=== PATIENT | male | born 1965 | race Caucasian/White ===

== ENCOUNTER 2018-01-21 20:22 | Observation (INO) ==
[2018-01-21] MEDS ORDERED: 0.9 % Sodium Chloride 1,000 ML ONE (22:30)
[2018-01-21] MEDS ORDERED: 0.9 % Sodium Chloride 1,000 ML IVC ONE (23:26)
[2018-01-22] MEDS ORDERED: 0.9 % Sodium Chloride 1,000 ML IVC ONE ×2 (00:07→02:27)
[2018-01-22] MEDS ORDERED: Naloxone 0.4 MG/ML INJ IVP PRN (00:14)
[2018-01-22 01:39] LABS: Calcium 8.7 mg/dL (8.6-10.3); Potassium 3.7 mEq/L (3.5-5.1)
[2018-01-22] MEDS: 0.9 % Sodium Chloride 1,000 ML IVC SCH ×5 (04:48→22:43)
[2018-01-22 05:16] LABS: Hematocrit 37.3 % (37.5-50.1); Hemoglobin 12.4 g/dL (12.9-16.9); Mean Corpuscular HGB Conc 33.2 g/dL (31.6-35.5); Mean Corpuscular Hemoglobin 33.5 pg (28.0-33.3); Mean Corpuscular Volume 100.8 fL (83.0-100.0); Mean Platelet Volume 9.5 fL (9.4-12.4); Platelet Count 248 K/mcL (140-400); Red Cell Distribution Width 14.5 % (11.5-14.5)
[2018-01-22 05:31] LABS: Calcium 8.7 mg/dL (8.6-10.3); Potassium 3.9 mEq/L (3.5-5.1)
--- NOTE | 2018-01-22 06:20 | Internal Med History&Physical ---
Date of Encounter: 01/21/18 Time of Encounter: 23:00 Internal Medicine - H&P: HPI Chief complaint: Acute kidney injury Admitted From: Home Plans for Post Hospital Care: Home History of present illness: Mr. Laird is a 52 year old male Patient states that he over did it yesterday mowing really tall grass in the heat. He says he had been out working all day and not keeping up with fluids and got dehydrated. During his work he reports feeling leg cramps and seeing flashes in his eyes. The only thing he had to drink was sweet tea. He was dripping with sweat by the time he was finished working and took a shower, after which he says he began to feel really cold and started to have worsened muscle aches and cramps as well as abdominal pain. He also had decreased urination at home which concerned him enough to go to a urgent care for evaluation. There they sent him to the [facility], and later was transferred here for further management after noting acute kidney injury. At the [place] ER his creatinine was 4.00 with a BUN of 41. His UA showed 30 of protein, moderate blood, many bacteria, many hyaline and granular casts and few wbc casts. On-call nephrology was called in the ER, and will see the patient at [place]. Currently the patient feels much better, denies abdominal pain, and muscle aches have resolved. Past Med Surg Social Fam HX - Past Medical History Medical history: arthritis, hypertension Psychiatric history: no psych history - Past Surgical History Surgical History: no surgical history - Social History Smoking Status: Former smoker Smokeless Tobacco Status: No Alcohol use: occasionally Drug use: none Internal Medicine - H&P: Meds Aspirin [Lo-Dose Aspirin EC] 81 mg PO DAILY 04/04/16 [History] amLODIPine [Norvasc] 5 mg PO DAILY 04/04/16 [History] Cayenne 450 mg PO DAILY 01/21/18 [History] Cholecalciferol (Vitamin D3) [Vitamin D] 1,000 unit PO DAILY 01/21/18 [History] Lisinopril [Zestril] 20 mg PO DAILY 01/21/18 [History] 3 Allergy/AdvReac Type Severity Reaction Status Date / Time No Known Allergies Allergy Verified 01/21/18 17:37 All Systems PM: A 10-system review of systems was performed and is negative for pertinent findings except as documented above in the HPI. - Constitutional Vitals: Temp Pulse Resp BP Pulse Ox 98.5 F 89 17 124/74 96 01/22/18 05:10 01/22/18 05:10 01/22/18 05:10 01/22/18 05:10 01/22/18 05:10 General appearance: Present: cooperative, A&O X 3, pleasant, no acute distress, answers questions appropriately - Head Head exam: Present: normal inspection - Eye Eye exam: Present: EOMI, normal appearance - Neck Neck exam general surgery: Present: full ROM - Respiratory Respiratory exam: Present: CTAB. Absent: chest wall tenderness, respiratory distress, wheezes - Cardiovascular Cardiovascular exam: Present: RRR. Absent: diastolic murmur, systolic murmur - GI/Abdominal GI/Abdominal exam: Present: normal bowel sounds. Absent: guarding, tenderness - Extremities Exam Extremities exam: Present: full ROM, warm, radial pulses palpable and symmetrical. Absent: calf tenderness, pedal edema, tenderness - Neurological Exam Neurological exam: Present: no focal deficits, strengths equal and symetr throughout. Absent: motor sensory deficit, facial droop, speech deficit - Skin Skin exam: Present: dry, normal color, warm Internal Med - H&P Results - Labs CBC & Chem 7: 01/22/18 04:08 01/22/18 04:08 Labs: Short CBC 01/22/18 Range/Units 04:08 WBC 10.2 (4.3-11.1) K/mcL Hgb 12.4 L D (12.9-16.9) g/dL Hct 37.3 L (37.5-50.1) % Plt Count 248 (140-400) K/mcL [facility] 01/22/18 01/22/18 00:44 04:08 Sodium 137 139 Potassium 3.7 3.9 Chloride 105 108 H Carbon Dioxide 26 26 BUN 35 H 30 H Creatinine 2.72 H 2.26 H Glucose 149 H 103 Calcium 8.7 8.7 - Assessment and plan (1) Acute renal failure (ARF) Current Visit: No Status: Acute Assessment and plan: Patient has no history of renal disease. His symptoms likely related to dehydration, prerenal picture. His BUN/creatinine have improved with IV fluids. Patient has Echevarria catheter in place, for collection of 24-hour urine sodium and creatinine. Patient does have hyaline casts as well as granular casts. These could indicate either prerenal or intrinsic ideologies. Nephrology consultation in the morning. Obtain urine sodium and creatinine Obtain urine osmolality Calculate fractional excretion of sodium to determine prerenal versus intrinsic etiology of SOBEIDA. Continue IV fluids Continue to monitor kidney function and urine output. Qualifiers: Acute renal failure type: unspecified Qualified Code(s): N17.9 - Acute kidney failure, unspecified (2) Anuria and oliguria Current Visit: No Status: Acute Assessment and plan: Improved with IV hydration. Continue to monitor Treatment as above. (3) Dehydration Current Visit: Yes Status: Acute Assessment and plan: Likely cause of SOBEIDA. Patient was out in the heat mowing the lawn not drinking sufficient fluids. Treatment as above. (4) Urinary tract infection Current Visit: No Status: Acute Assessment and plan: Patient had bacteria on his urinalysis, but negative nitrite and leukocyte esterase. Urine culture was not indicated. Likely patient's symptoms related to dehydration and not due to infection. Patient given Cipro at [facility], will discontinue for now. Continue to monitor. Qualifiers: Qualified Code(s): N39.0 - Urinary tract infection, site not specified; R31.9 - Hematuria, unspecified - Time Spent With Patient Total time spent is greater than 50% in coordination of care (as documented) at patient's floor/unit and/or counseling patient: Greater than 35 minutes
[2018-01-22] MEDS: *HR* Heparin 5,000 UNIT/ML VIAL SQ SCH ×2 (06:21→16:33)
--- NOTE | 2018-01-22 10:12 | Nephrology Consult Note ---
<SalsunnyBhavna lirianoKhadra B - Last Filed: 01/22/18 10:53> Date of Encounter: 01/22/18 Time of Encounter: 10:09 Assessment and Plan (1) SOBEIDA (acute kidney injury) Status: Acute No kidney disease at baseline. Initial serum creatinine was 4, SCR is 2.26 today GFR is 31. He does have a Echevarria in place, with a 24-hour urine in progress noted to have clear yellow urine. Initial UA showed 30 protein, moderate blood, and a few WBC. I would like to repeat the UA after the 24-hour urine with a clean catch to compare with the initial. UA ordered for tomorrow at 0800, after the 24-hour urine is complete. Continue IV fluid. Avoid nephrotoxins at renal dose all medications. Strict I&O. Retroperitoneal ultrasound ordered for today. CPK and Uric acid ordered for tomorrow. (2) Dehydration Status: Acute Continue IV fluid. Per primary. History of Present Illness - Reason for Consult Consult date: 01/22/18 Acute Kidney Injury - Chief Complaint renal failure - History of Present Illness Mr. Laird is a 52-year-old male with no notable past medical history. He went to [facility] urgent care after being outside doing yard work. The urgent care was not able to collect a urine specimen, so he was sent to his primary care provider which is where the initial labs were collected. The primary care provider then sent him to the ER where he was finally transferred to our ED. Upon arrival he stated that he had been outside working "very hard" for nearly a day and a half, and he does feel that he overdid it. He did try to rehydrate with sweet tea but by the evening time yesterday he was seeing flashing lights and having muscle aches. That is when he went to urgent care. He admits to only voiding small amounts at a time and dysuria over the last day and a half as well. Denies fever and chills nausea or vomiting. Has never seen a marble setter in the past and has never been told he has had a prostate issue. He states he only sees his PCP when he absolutely needs to. No family history of kidney disease that he is aware of and no recent medication changes. Denies chronic use of nonsteroidal anti-inflammatories. Does not smoke cigarettes or use illegal drugs. Admits to drinking at least 2 beers every day and as much as 6 a day. He states he did not have any beer yesterday before his admission. There is a 24 hour urine and progress. I will also order a retroperitoneal ultrasound. Most likely this AK I is secondary to dehydration but will rule out other causes. Past Med Surg Social Fam HX - Past Medical History Medical history: arthritis, hypertension Psychiatric history: no psych history - Past Surgical History Surgical History: no surgical history - Social History Smoking Status: Former smoker Smokeless Tobacco Status: No Alcohol use: occasionally Drug use: none Medications and Allergies amLODIPine [Norvasc] 5 mg PO DAILY 04/04/16 [History] Cayenne 450 mg PO DAILY 01/21/18 [History] Cholecalciferol (Vitamin D3) [Vitamin D3] 1,000 unit PO DAILY 01/21/18 [History] Aspirin Enteric Coated [Aspirin EC] 81 mg PO DAILY 01/22/18 [History] Ergocalciferol (VITAMIN D2) [Drisdol (50,000 Unit)] 50,000 units PO QWEEK [History] Lisinopril/Hydrochlorothiazide [Zestoretic 20-25 mg Tablet] 1 tab PO DAILY 01/22 [History] Melatonin 5 mg PO HS 01/22/18 [History] Omeprazole [PriLOSEC] 40 mg PO DAILY 01/22/18 [History] 3 Allergy/AdvReac Type Severity Reaction Status Date / Time No Known Allergies Allergy Verified 01/21/18 17:37 Review of Systems Constitutional: no chills, no fatigue, no fever(s) Cardiovascular: no chest pain Respiratory: no cough Gastrointestinal: no abdominal pain, no change in bowel habits, no diarrhea Genitourinary Male: dysuria, urinary frequency, urinary hesitancy Exam - Vital Signs Vital signs: Initial Vital Signs Temp Pulse Resp BP Pulse Ox 99.9 F H 83 17 111/73 96 01/21/18 22:19 01/21/18 22:19 01/21/18 22:19 01/21/18 22:19 01/21/18 22:19 Vital Signs - Last 8 Hours Temp Pulse Resp BP Pulse Ox 01/22/18 07:08 98.2 F 81 18 127/78 97 01/22/18 05:10 98.5 F 89 17 124/74 96 Intake and Output 01/21/18 01/22/18 01/22/18 23:59 07:59 15:59 Intake Total 1000 / 1000 1999 / 2000 1000 / 1000 Output Total 1000 / 1000 650 / 650 400 / 400 Balance 0 / 0 1350 / 1350 600 / 600 Intake: IV Fluids 1000 / 1000 1999 / 1999 1000 / 1000 0.9 % Sodium Chloride 1,000 ML 1000 / 1000 1999 / 1999 1000 / 1000 @ 250 mls/hr IVC .Q4H PENDING SALE TO [facility] Rx#: [id number] Output: Urine 650 / 650 Catheter 1000 / 1000 400 / 400 Other: Weight 93.8 kg - General Appearance General appearance: well-developed, well-nourished EENT: ATNC, hearing intact, vision intact Neck: supple Respiratory: clear Cardiology: no edema, normal S1, normal S2 Gastrointestinal: normoactive bowel sounds, no tenderness, no guarding Integumentary: no rash, warm and dry Neurologic: alert and oriented x3 Psychiatric: mood/affect appropriate, cooperative Results - Lab Results 01/22/18 04:08 01/22/18 04:08 Most recent lab results Calcium 8.7 mg/dL (8.6-10.3) 01/22/18 04:08 Consult Discharge Plan - Plan Additional Instructions: Hold Zestoretic for 2 more days Referrals: Chantal Maloney CNP [Primary Care Provider] - (In 1-2 weeks) <Bobby Medel - Last Filed: 01/29/18 11:25> Date of Encounter: 01/22/18 Exam - Vital Signs Vital signs: Initial Vital Signs Temp Pulse Resp BP Pulse Ox 99.9 F H 83 17 111/73 96 01/21/18 22:19 01/21/18 22:19 01/21/18 22:19 01/21/18 22:19 01/21/18 22:19 Results - Lab Results 01/22/18 04:08 01/23/18 05:37 Most recent lab results Calcium 8.9 mg/dL (8.6-10.3) 01/23/18 05:37 Urine Creatinine 40 mg/dL 01/22/18 07:20 Urine Sodium 132.0 mEq/L 01/22/18 07:20 - Attending Attestation I examined this patient and my medical decision-making was reviewed with the Resident Physician/FRUIT DRYER. I agree with the documented findings, disposition and treatment plan as described except to the extent set forth below. Pt seen and examined, in brief 53 y o male with no sig PMH admitted with generalized malaise and althralgias after working all day outside in the heat. SCr noted at 4 with baseline at 1.1 as of 2015. SCr already improved at 2.26 as of this am with IVF, continue aggressive volume repletion. Urine studies pending. CPK and uric acid levels pending. Continue to avoid nephrotoxins if possible. No acute indication for CARPET INSPECTOR FINISHED at this time.
--- NOTE | 2018-01-22 14:14 | Internal Med Progress Note ---
Date of Encounter: 01/22/18 Time of Encounter: 10:40 - Assessment and plan (1) SOBEIDA (acute kidney injury) Current Visit: Yes Status: Acute Assessment and plan: Most likely related to ATN. Checking creatinine kinase. Creatinine BUN, creatinine improving. We will continue IV hydration. Continue to monitor urine output. Avoid any further nephrotoxic agents. (2) Dehydration Current Visit: Yes Status: Acute Assessment and plan: Continue IV hydration. Encouraged oral hydration. Replete electrolytes. (3) Anuria and oliguria Current Visit: No Status: Acute (4) Urinary tract infection Current Visit: Yes Status: Ruled-out Assessment and plan: Initially suspected of having urinary tract infection. However did reveal urinalysis, most likely this is all related to his acute kidney injury. No signs of acute UTI at this time. No indication for antibiotics. Qualifiers: Qualified Code(s): N39.0 - Urinary tract infection, site not specified; R31.9 - Hematuria, unspecified - Time Spent With Patient Total time spent is greater than 50% in coordination of care (as documented) at patient's floor/unit and/or counseling patient: - Subjective Interval history: Patient is feeling much better this morning. He is having good urine output. Denies any muscle cramps or pain. - Constitutional Vitals: Temp Pulse Resp BP Pulse Ox 98.5 F 75 22 133/85 98 01/22/18 10:59 01/22/18 10:59 01/22/18 10:59 01/22/18 10:59 01/22/18 10:59 General appearance: Present: cooperative, A&O X 3, pleasant, no acute distress, answers questions appropriately - Respiratory Respiratory exam: Present: CTAB. Absent: accessory muscle use, rales, rhonchi, wheezes - GI/Abdominal GI/Abdominal exam: Present: normal bowel sounds, soft, no peritoneal signs. Absent: distended, tenderness - Extremities Exam Extremities exam: Present: warm, radial pulses palpable and symmetrical. Absent : calf tenderness, cyanotic, pedal edema - Neurological Exam Neurological exam: Present: CN II-XII intact, oriented X3, no focal deficits. Absent: facial droop, speech deficit Internal Medicine: Result - Labs CBC & Chem 7: 01/22/18 04:08 01/22/18 04:08 Labs: Short CBC 01/22/18 Range/Units 04:08 WBC 10.2 (4.3-11.1) K/mcL Hgb 12.4 L D (12.9-16.9) g/dL Hct 37.3 L (37.5-50.1) % Plt Count 248 (140-400) K/mcL BMP 01/22/18 01/22/18 00:44 04:08 Sodium 137 139 Potassium 3.7 3.9 Chloride 105 108 H Carbon Dioxide 26 26 BUN 35 H 30 H Creatinine 2.72 H 2.26 H Glucose 149 H 103 Calcium 8.7 8.7 Consult Discharge Plan - Plan Referrals: Chantal Maloney, CONCR[employer] BUILDINGS [employer]SEMBLER [Primary Care Provider] -
[2018-01-23] MEDS: 0.9 % Sodium Chloride 1,000 ML IVC SCH ×2 (02:59→06:09)
[2018-01-23 04:29] LABS: Bilirubin,Urine Negative (Negative); Blood,Urine Small (Negative); Clarity,Urine Clear (Clear); Color,Urine Yellow (Yellow); Glucose,Urine (UA) 250 mg/dL (Normal); Ketones,Urine Negative (Negative); Leukocyte Esterase,Urine Negative (Negative); Nitrite,Urine Negative (Negative); PH,Urine 6.5 pH Units (5.0-8.0); Protein,Urine Negative (Neg-Trace); Specific Gravity,Urine 1.009 (1.010-1.025); Urobilinogen,Urine Normal (Normal)
[2018-01-23 04:32] LABS: Bacteria,Urine None Seen per hpf (None-Few); Hyaline Casts,Urine None Seen per lpf (None-Few); Squamous Epithelial Cell,Urine Few per lpf (None-Few); WBC,Urine 0-3 per hpf (0-3)
[2018-01-23 06:17] LABS: BUN/Creatinine Ratio 12 (6-26); Blood Urea Nitrogen 16 mg/dL (6-20); Calcium 8.9 mg/dL (8.6-10.3); Carbon Dioxide 24 mEq/L (23-29); Chloride 107 mEq/L (98-107); Creatine Kinase 40 Units/L (30-223); Glucose 98 mg/dL (70-105); Osmolality,Calculated 289 (280-300); Potassium 4.3 mEq/L (3.5-5.1); Sodium 139 mEq/L (136-145); Uric Acid 3.8 mg/dL (2.3-7.6); eGFR For Non-African Americans 55 (> 60)
[2018-01-23] MEDS: *HR* Heparin 5,000 UNIT/ML VIAL SQ SCH ×2 (06:17→06:42)
[2018-01-23 07:21] VITALS: BP 129/88
--- NOTE | 2018-01-23 09:48 | Discharge Summary ---
- NOTES TO OUTPATIENT PROVIDER Notes to Outpatient Provider: Patient was hospitalized after presenting with acute kidney injury related to dehydration as he had been working outside in the sun without keeping up with hydration. He received IV fluids with improvement in his renal function. His clinically stable to be discharged home at this time. He will follow up with his primary care provider for further management. Orders not resulted at time of discharge: Pending orders 01/22/18 07:20 Urine Creatinine 24 Hr [UCHEM] Routine Urine Sodium 24 Hr [UCHEM] Routine Date of Encounter: 01/23/18 Time of Encounter: 09:46 - Discharge Diagnosis (1) SOBEIDA (acute kidney injury) Priority: Primary Status: Acute (2) Dehydration Priority: Secondary Status: Acute (3) Anuria and oliguria Priority: Secondary Status: Acute (4) Urinary tract infection Priority: Secondary Status: Ruled-out Assessment and Plan: Ruled out Qualifiers: Urinary tract infection type: acute cystitis Hematuria presence: without hematuria Qualified Code(s): N30.00 - Acute cystitis without hematuria Hospital course: Mr. Laird is a 52 year old male Patient with history of hypertension, arthritis was hospitalized here after presenting with acute kidney injury related to dehydration as he had been working outside in the sun without keeping up with hydration. He received IV fluids with improvement in his renal function. He is clinically stable to be discharged home at this time. He will follow up with his primary care provider for further management. Discharge discussed with: patient - Time Spent with Patient Total time spent providing and/or coordinating discharge services: Less than 30 minutes (25 min) - Discharge Medications Home Medications: amLODIPine [Norvasc] 5 mg PO DAILY 04/04/16 [History] Cayenne 450 mg PO DAILY 01/21/18 [History] Cholecalciferol (Vitamin D3) [Vitamin D3] 1,000 unit PO DAILY 01/21/18 [History] Aspirin Enteric Coated [Aspirin EC] 81 mg PO DAILY 01/22/18 [History] Ergocalciferol (VITAMIN D2) [Drisdol (50,000 Unit)] 50,000 units PO QWEEK [History] Lisinopril/Hydrochlorothiazide [Zestoretic 20-25 mg Tablet] 1 tab PO DAILY 01/22 [History] Melatonin 5 mg PO HS 01/22/18 [History] Omeprazole [PriLOSEC] 40 mg PO DAILY 01/22/18 [History] Allergies/Adverse Reactions: 3 Allergy/AdvReac Type Severity Reaction Status Date / Time No Known Allergies Allergy Verified 01/21/18 17:37 Date of admission: 01/21/18 21:33 Primary care physician: Chantal Maloney Consults: 01/22/18 06:37 Consult to Nephrology [CONS] Routine Consulting Provider: [facility]/ORIGILSON/DOMINIQUE/EMY Reason for Consult: SOBEIDA with hyaline and granular casts. Call Completed: Yes Discharging clinician: Jg Ferreira Anticipated date of discharge: 01/23/18 - Constitutional Vitals: Temp Pulse Resp BP Pulse Ox 98.0 F 80 18 129/88 97 01/23/18 07:13 01/23/18 07:13 01/23/18 07:13 01/23/18 07:13 01/23/18 07:13 General appearance: Present: cooperative, A&O X 3, pleasant, no acute distress, answers questions appropriately - Respiratory Respiratory exam: Present: CTAB. Absent: accessory muscle use, rales, rhonchi, wheezes - Cardiovascular Cardiovascular exam: Present: RRR, +S1, +S2. Absent: diastolic murmur, gallop, rubs, systolic murmur - GI/Abdominal GI/Abdominal exam: Present: normal bowel sounds, soft, no peritoneal signs. Absent: distended, tenderness - Extremities Exam Extremities exam: Present: warm, radial pulses palpable and symmetrical. Absent : calf tenderness, cyanotic, pedal edema - Neurological Exam Neurological exam: Present: alert, CN II-XII intact, oriented X3, no focal deficits. Absent: facial droop, speech deficit - Skin Skin exam: Present: dry, intact - Patient Status Disposition: Home, Self-Care Condition: Good Functional capacity at discharge: independent ambulation Overall status at discharge: patient is progressing back to baseline - Discharge Instructions Follow Up With: Chantal Maloney CNP [Primary Care Provider] - (In 1-2 weeks) Additional Instructions: Hold Zestoretic for 2 more days - Diet and Activity Activity: increase activity as tolerated Diet: advance to your usual diet, low fat, low cholesterol, low salt diet
[2018-01-23 14:53] LABS: Total Volume 24 Hour,Urine 5.72 Liters (0.80-1.80)
== END 2018-01-23 11:30 | disposition home or self-care (01) ==
LOC: 2ANU → SUATTDRO 21:33
PROVIDERS: ADMIT Family Medicine; ATTEND Internal Medicine